=== PATIENT | male | born 1955 | race Caucasian/White ===

== ENCOUNTER 2020-10-12 12:25 | Emergency (ER) | payer MEDICARE ==
[2020-10-12] MEDS ORDERED: HYDROCODON-ACE1 EAC4 PO ×2 (16:16→16:20)
== END 2020-10-12 17:09 | disposition home or self-care (01) ==
LOC: ER1 12:25
DX: S22.31XA Fracture of one rib, right side, initial encounter for closed fracture (principal); K21.9 Gastro-esophageal reflux disease without esophagitis; E78.5 Hyperlipidemia, unspecified; J44.9 Chronic obstructive pulmonary disease, unspecified; I10 Essential (primary) hypertension; Z79.82 Long term (current) use of aspirin; Z79.899 Other long term (current) drug therapy; W20.8XXA Other cause of strike by thrown, projected or falling object, initial encounter
CPT/HCPCS: 72131; 99283

== ENCOUNTER → 2020-10-22 | Outpatient (CLI) | payer MEDICARE ==
[~2020-10-22] MED LIST: HYDROCODON-ACE1 EAC4 PO
== END ==
LOC: KOH-I 08:15
DX: M48.54XA Collapsed vertebra, not elsewhere classified, thoracic region, initial encounter for fracture (principal); M85.88 Other specified disorders of bone density and structure, other site
CPT/HCPCS: 72148; 77080